=== PATIENT | female | born 1940 | race Hispanic/Latino ===

== ENCOUNTER 2020-11-26 09:54 | Inpatient (IN) | payer OTHER, MEDICARE ==
[~2020-11-26] VITALS: Ht 157.5 cm; Wt 75.9 kg
[2020-11-26 10:32] LABS: BASOPHILS % (AUTO) 0.3 % (0.0-5.0); HEMATOCRIT 47.6 % (36-48); LYMPHOCYTES % (AUTO) 19.1 % (21.0-51.0); MEAN CORPUSCULAR HEMOGLOBIN 29.9 pg (27.0-33.0); MEAN CORPUSCULAR HGB CONC 32.6 g/dL (32.0-36.0); MEAN CORPUSCULAR VOLUME 91.7 fL (79-99); MONOCYTES % (AUTO) 5.4 % (3.0-13.0); NEUTROPHILS % (AUTO) 72.6 % (40.0-77.0); PLATELET COUNT (AUTO) 237 K/uL (130-400); RED BLOOD CELL COUNT(AUTO) 5.19 MIL/uL (4.00-5.50); RED CELL DISTRIBUTION WIDTH 12.2 % (11.0-15.5)
[2020-11-26 10:34] LABS: APPEARANCE,URINE Clear (CLEAR); BILIRUBIN,URINE Negative (NEGATIVE); COLOR,URINE Yellow (YELLOW); GLUCOSE, URINE (UA) Negative (NEGATIVE); KETONES,URINE Negative (NEGATIVE); LEUKOCYTE ESTERASE ,URINE Small (NEGATIVE); NITRATE,URINE Positive (NEGATIVE); OCCULT BLOOD,URINE Nonhemolyzed Trace (NEGATIVE); PROTEIN,URINE Trace mg/dL (NEGATIVE); UROBILINOGEN,URINE 0.2 mg/dL (0.2-1.0)
[2020-11-26 10:38] LABS: CARBON DIOXIDE 27 mmol/L (21-32); CHLORIDE 103 mmol/L (101-111); CREATININE 0.9 mg/dL (0.5-1.5); GLOMERULAR FILTR. RATE CALC 64 mL/min (>60); GLUCOSE,RANDOM 128 mg/dL (70-105); POTASSIUM 3.9 mmol/L (3.5-5.1); SODIUM SERUM 141 mmol/L (136-145); UREA NITROGEN, BLOOD 15 mg/dL (7-18)
[2020-11-26 10:42] LABS: INR 1.05 (0.85-1.15); PROTHROMBIN TIME 11.4 SEC (9.6-11.6)
[2020-11-26 10:42] LABS: BACTERIA,URINE Moderate /HPF (None Seen)
[2020-11-26 10:43] LABS: PARTIAL THROMBOPLASTIN TIME 26.9 SEC (26.3-35.5)
[2020-11-26 10:52] LABS: ALANINE AMINOTRANSFERASE 33 U/L (12-78); ALBUMIN 3.8 g/dL (3.5-5.0); ASPARTATE AMINOTRANSFERASE 23 U/L (10-37); BILIRUBIN,TOTAL 0.5 mg/dL (0.2-1.0); CREATINE KINASE, TOTAL 122 U/L (21-232); MYOGLOBIN 203 ng/mL (10-92); TOTAL PROTEIN, SERUM 7.7 g/dL (6.0-8.3); TROPONIN I < 0.04 ng/mL (0.00-0.06)
[2020-11-26] MEDS ORDERED: MORPHINE 2 MG SYG ONE (10:56)
[2020-11-26] MEDS ORDERED: ONDANSETRON 4MG INJ ONE (10:56)
[2020-11-26] MEDS: 0.9%NACL 1000ML 1,000 ML IV SCH (16:15)
[2020-11-26] MEDS ORDERED: ONDANSETRON 4MG INJ IV PRN (16:15)
[2020-11-26] MEDS ORDERED: ACETAMINOPHEN 325 MG TAB PO PRN ×2 (16:15)
[2020-11-26 16:47] LABS: HEMOGLOBIN A1C 6.6 % (4.0-6.0)
[2020-11-26] MEDS ORDERED: 0.9%NACL 1000ML 1,000 ML IV ONE (18:01)
[2020-11-26] MEDS ORDERED: LEVOFLOXACIN 750 MG/D5W 150 ML 150 ML ONE (20:40)
[2020-11-26] MEDS ORDERED: FAMOTIDINE 20MG VIAL IV ONE (20:41)
[2020-11-26] MEDS ORDERED: ZOSYN 3.375GM+NS 50ML 50 ML IV SCH (21:00)
[2020-11-27] VITALS (7 sets, daily range): BP systolic 121–191; BP diastolic 43–89
[2020-11-27] MEDS: 0.9%NACL 1000ML 1,000 ML IV SCH ×2 (01:59→18:55)
[2020-11-27] MEDS: MORPHINE 2 MG SYG IV PRN ×2 (02:14→11:52)
[2020-11-27 08:03] LABS: BASOPHILS % (AUTO) 0.3 % (0.0-5.0); EOSINOPHILS % (AUTO) 0.2 % (0.0-8.0); LYMPHOCYTES % (AUTO) 9.1 % (21.0-51.0); MEAN CORPUSCULAR HEMOGLOBIN 30.3 pg (27.0-33.0); MEAN CORPUSCULAR HGB CONC 32.8 g/dL (32.0-36.0); MEAN CORPUSCULAR VOLUME 92.3 fL (79-99); MONOCYTES % (AUTO) 5.7 % (3.0-13.0); NEUTROPHILS % (AUTO) 84.2 % (40.0-77.0); PLATELET COUNT (AUTO) 215 K/uL (130-400); RED BLOOD CELL COUNT(AUTO) 4.66 MIL/uL (4.00-5.50); RED CELL DISTRIBUTION WIDTH 12.6 % (11.0-15.5); WHITE BLOOD COUNT (AUTO) 15.1 K/uL (4.8-10.8)
[2020-11-27 08:20] LABS: ALBUMIN 3.2 g/dL (3.5-5.0); BILIRUBIN,TOTAL 0.4 mg/dL (0.2-1.0); POTASSIUM 4.2 mmol/L (3.5-5.1); TOTAL PROTEIN, SERUM 6.9 g/dL (6.0-8.3)
[2020-11-27] MEDS: FAMOTIDINE 20MG VIAL IV SCH (11:52)
[2020-11-28 04:15] VITALS: BP 124/43
[2020-11-28 06:45] VITALS: BP 132/53
[2020-11-28] MEDS: [UNRECOGNIZED DRUG - REMARK] MISC SCH ×4 (07:45→10:45)
[2020-11-28] MEDS: FAMOTIDINE 20MG VIAL IV SCH (09:13)
[2020-11-28 11:58] VITALS: BP 110/53
[2020-11-28] MEDS ORDERED: LEVOFLOXACIN 500 MG/D5W 100 ML 100 ML IV SCH (12:15)
[2020-11-28 16:00] VITALS: BP 152/90
[2020-11-28] MEDS: CEFEPIME HCL 1 GM VIAL IVP SCH (17:38)
[2020-11-28 19:00] VITALS: BP 179/68
[2020-11-28] MEDS: 0.9%NACL 1000ML 1,000 ML IV SCH (20:30)
[2020-11-29] VITALS: BP 156/63
[2020-11-29 04:00] VITALS: BP 155/74
[2020-11-29] MEDS: CEFEPIME HCL 1 GM VIAL IVP SCH ×2 (04:45→14:01)
[2020-11-29 06:17] LABS: BASOPHILS % (AUTO) 0.2 % (0.0-5.0); EOSINOPHILS % (AUTO) 4.3 % (0.0-8.0); HEMATOCRIT 39.2 % (36-48); LYMPHOCYTES % (AUTO) 20.3 % (21.0-51.0); MEAN CORPUSCULAR HEMOGLOBIN 30.5 pg (27.0-33.0); MEAN CORPUSCULAR HGB CONC 33.2 g/dL (32.0-36.0); MONOCYTES % (AUTO) 6.3 % (3.0-13.0); NEUTROPHILS % (AUTO) 68.3 % (40.0-77.0); PLATELET COUNT (AUTO) 226 K/uL (130-400); RED BLOOD CELL COUNT(AUTO) 4.26 MIL/uL (4.00-5.50); RED CELL DISTRIBUTION WIDTH 12.7 % (11.0-15.5); WHITE BLOOD COUNT (AUTO) 14.3 K/uL (4.8-10.8)
[2020-11-29 06:24] LABS: POTASSIUM 3.8 mmol/L (3.5-5.1)
[2020-11-29 08:55] VITALS: BP 173/80
[2020-11-29] MEDS: FAMOTIDINE 20MG VIAL IV SCH (10:02)
[2020-11-29] MEDS: 0.9%NACL 1000ML 1,000 ML IV SCH (10:02)
[2020-11-29] MEDS: MORPHINE 2 MG SYG IV PRN (11:32)
[2020-11-29 12:00] VITALS: BP 151/67
[2020-11-29] MEDS ORDERED: LEVOFLOXACIN 250 MG/D5W 50ML 50 ML IV SCH (12:00)
[2020-11-29 16:30] VITALS: BP 143/57
[2020-11-29 19:00] VITALS: BP 166/83
[2020-11-30] VITALS: BP 192/53
[2020-11-30] MEDS: 0.9%NACL 1000ML 1,000 ML IV SCH ×2 (00:13→12:24)
[2020-11-30 04:00] VITALS: BP_SYST 145; BP_SYST 176; BP_DIAS 62; BP_DIAS 74
[2020-11-30] MEDS: CEFEPIME HCL 1 GM VIAL IVP SCH ×2 (04:17→14:48)
[2020-11-30 04:26] LABS: BASOPHILS % (AUTO) 0.5 % (0.0-5.0); EOSINOPHILS % (AUTO) 7.9 % (0.0-8.0); HEMATOCRIT 39.7 % (36-48); LYMPHOCYTES % (AUTO) 28.2 % (21.0-51.0); MEAN CORPUSCULAR HEMOGLOBIN 29.7 pg (27.0-33.0); MONOCYTES % (AUTO) 8.1 % (3.0-13.0); NEUTROPHILS % (AUTO) 54.3 % (40.0-77.0); PLATELET COUNT (AUTO) 237 K/uL (130-400); RED BLOOD CELL COUNT(AUTO) 4.27 MIL/uL (4.00-5.50); RED CELL DISTRIBUTION WIDTH 12.7 % (11.0-15.5); WHITE BLOOD COUNT (AUTO) 11.2 K/uL (4.8-10.8)
[2020-11-30 04:38] LABS: CREATININE 0.9 mg/dL (0.5-1.5); POTASSIUM 3.9 mmol/L (3.5-5.1)
[2020-11-30 08:48] VITALS: BP 159/80
[2020-11-30] MEDS: FAMOTIDINE 20MG VIAL IV SCH (10:10)
[2020-11-30 12:36] VITALS: BP 166/82
== END 2020-11-30 16:01 | disposition home or self-care (01) | DRG 555 ==
LOC: EDH 09:54 → EDHIP 16:13 → 4AH 11-27 01:24
PROVIDERS: ADMIT Family Medicine; ATTEND Family Medicine
DX: M79.81 Nontraumatic hematoma of soft tissue (principal); K68.12 Psoas muscle abscess; N30.00 Acute cystitis without hematuria; I69.351 Hemiplegia and hemiparesis following cerebral infarction affecting right dominant side; E03.9 Hypothyroidism, unspecified; I10 Essential (primary) hypertension; I25.10 Atherosclerotic heart disease of native coronary artery without angina pectoris; E66.9 Obesity, unspecified; B96.20 Unspecified Escherichia coli [E. coli] as the cause of diseases classified elsewhere; R53.81 Other malaise; K57.30 Diverticulosis of large intestine without perforation or abscess without bleeding; K59.00 Constipation, unspecified; Z95.1 Presence of aortocoronary bypass graft; Z88.0 Allergy status to penicillin; Z88.2 Allergy status to sulfonamides; Z68.30 Body mass index [BMI] 30.0-30.9, adult; Z82.49 Family history of ischemic heart disease and other diseases of the circulatory system
CPT/HCPCS: 36415; 71045; 72192; 73502; 76882; 80048; 80053; 81001; 82550; 83036; 83605; 83874; 84145; 84484; 85025; 85610; 85651; 85730; 87040; 87077; 87088; 87186; 93005; 93971; 97039; G0378; J0692; J1956; J2405; J3490; J7030